=== PATIENT | female | born 1990 | race Caucasian/White ===

== ENCOUNTER 2025-07-09 11:06 | Outpatient (CLI) | payer OTHER, SELFPAY ==
[2025-07-11 04:00] LABS: HPV Source Vaginal
[2025-07-15 12:09] LABS: Pap Test Digital Imaging Done
== END 2025-07-09 11:07 | disposition home or self-care (01) ==
PROVIDERS: PCP Nurse Practitioner Family; Visit Provider Nurse Practitioner Family
DX: R53.83 Other fatigue (principal); F41.9 Anxiety disorder, unspecified; F32.A Depression, unspecified; Z12.4 Encounter for screening for malignant neoplasm of cervix; Z11.51 Encounter for screening for human papillomavirus (HPV)
CPT/HCPCS: 80053; 82306; 82728; 83540; 84443; 85025; 85651; 87624; 87625; 88141; 88142; 88175